=== PATIENT | male | born 2000 | race Hispanic/Latino ===

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

== ENCOUNTER 2019-07-01 10:41 | Emergency (ER) | payer OTHER ==
[~2019-07-01] VITALS: Ht 177.8 cm; Wt 105.9 kg
[~2019-07-01 10:41] MED LIST: ALEV220T26 PO; ARIP1TAB6; BENA25CA4 PO; BUPR100T3; BUPR150T3; HYDR50CA2; IBUP80TA; METH54TA5; PRED20TA PO; VITA1TAB23 PO; ZOFR4TAB14 PO
[2019-07-01] MEDS ORDERED: TETRACAINE 0.5% OPHTH SOLN 4ML OS ONE (12:00)
[2019-07-01] MEDS ORDERED: KETOROLAC 30 MG/ML VIAL (J1885) IV ONE (12:00)
[2019-07-01] MEDS ORDERED: FLUORESCEIN OPHTH 1 MG STRIP OS ONE (12:00)
[2019-07-01] MEDS ORDERED: ACETAMINOPHEN 500 MG TAB PO ONE (12:00)
[2019-07-01 13:14] LABS: BASO % 0.4 % (0.0-1.0); EOS # 0.3 10^3/uL (0.0-0.5); EOS % 2.3 % (0.0-3.0); HEMOGLOBIN 14.4 g/dl (13.5-17.5); LYMPH # 3.4 10^3/uL (1.5-5.0); LYMPH % 31.2 % (24.0-44.0); MEAN CORPUSCULAR HEMOGLOBIN 29.2 pg (27.0-33.0); MEAN CORPUSCULAR HGB CONC 32.7 g/dl (32.0-36.5); MEAN CORPUSCULAR VOLUME 89.2 fl (80.0-96.0); MONO # 0.6 10^3/uL (0.0-0.8); MONO % 5.9 % (0.0-5.0); NEUTROPHILS # 6.4 10^3/uL (1.5-8.5); NEUTROPHILS % 59.2 % (36.0-66.0); PLATELET COUNT, AUTOMATED 397 10^3/uL (150-450); RED BLOOD COUNT 4.93 10^6/uL (4.30-6.10); WHITE BLOOD COUNT 10.8 10^3/uL (4.0-10.0)
[2019-07-01 13:39] LABS: BLOOD UREA NITROGEN 16 MG/DL (7-18); CALCIUM LEVEL 8.7 MG/DL (8.5-10.1); CARBON DIOXIDE LEVEL 27 MEQ/L (21-32); CHLORIDE LEVEL 108 MEQ/L (98-107); CREATININE FOR GFR 0.82 MG/DL (0.70-1.30); GLUCOSE, FASTING 80 MG/DL (70-100); POTASSIUM SERUM 4.2 MEQ/L (3.5-5.1); SODIUM LEVEL 140 MEQ/L (136-145)
[2019-07-01] MEDS ORDERED: METOCLOPRAMIDE INJ 10MG/2ML VIAL (J2765) IV ONE (14:00)
[2019-07-01] MEDS ORDERED: ACETAMINOPHEN TAB 650MG DOSE (2X325MG) PO ONE (14:00)
[2019-07-01] MEDS ORDERED: diphenhydrAMINE INJ 50MG/ML VIAL (J1200) IV ONE (14:00)
--- NOTE | 2019-07-01 14:14 | REP ---
CT brain without contrast: History: Left-sided vision changes. No comparison brain imaging. Findings: Preliminary digital welder gun radiograph is unremarkable. The bony calvarium is intact. The sphenoid sinus is opacified on its right side with fluid. There is minimal mucosal thickening in water to left ethmoid air cells. No intraorbital abnormality is seen. The lateral, third, and fourth ventricles are normal in size and position. Dupree-white differentiation pattern is normal above and below the tentorium. There is no evidence of intracranial hemorrhage. No mass, infarct, extra-axial fluid collection, or midline shift is appreciated. Impression: Right-sided sphenoid sinusitis. Otherwise negative CT brain without contrast. Electronically Signed by Michele Dior MD 07/01/2019 02:05 P
[2019-07-01 14:42] VITALS: BP 116/66
== END 2019-07-01 14:50 | disposition home or self-care (01) ==
LOC: M ED 10:41
DX: H53.8 Other visual disturbances (principal); H54.52A1 Low vision left eye category 1, normal vision right eye; J01.30 Acute sphenoidal sinusitis, unspecified; F17.210 Nicotine dependence, cigarettes, uncomplicated; Z79.899 Other long term (current) drug therapy
CPT/HCPCS: 70450; 80048; 85025; 96374; 96375; 99284; J1200; J1885; J2765